=== PATIENT | female | born 1980 | race Caucasian/White ===

== ENCOUNTER 2018-03-18 11:41 | Emergency (ER) | payer BC ==
[2018-03-18 12:01] VITALS: RESP 20; TEMP 97.9; O2SAT 100
[2018-03-18] MEDS ORDERED: KETOROLAC TROMETHAMINE 30 MG/ML SOL IV ONE (12:16)
[2018-03-18] MEDS ORDERED: ONDANSETRON HCL 4 MG/2 ML SOL IV ONE (12:16)
[2018-03-18] MEDS ORDERED: ONDANSETRON HCL 4 MG/2 ML SOL ONE (12:25)
[2018-03-18] MEDS ORDERED: KETOROLAC TROMETHAMINE 30 MG/ML SOL ONE (12:25)
[2018-03-18] MEDS ORDERED: SODIUM CHLORIDE 0.9% 1000 ML SOL IV SCH (12:30)
[2018-03-18 12:38] LABS: CALCIUM 8.4 mg/dl (8.5-10.1); CARBON DIOXIDE 26.7 mEq/L (21-32); CREATININE 1.11 mg/dl (0.60-1.00); POTASSIUM 3.8 mMol/L (3.5-5.1)
[2018-03-18] MEDS ORDERED: TAMSULOSIN HYDROCHLORIDE 0.4 MG CAP ONE (13:09)
[2018-03-18] MEDS ORDERED: TAMSULOSIN HYDROCHLORIDE 0.4 MG CAP PO ONE (13:30)
[2018-03-18 13:49] LABS: APPEARANCE,URINE Clear; BILIRUBIN,URINE NEGATIVE (NEGATIVE); COLOR,URINE Yellow; GLUCOSE, URINE (UA) NEGATIVE (NEGATIVE); KETONES,URINE 1+ (NEGATIVE); LEUKOCYTE ESTERASE ,URINE NEGATIVE (NEGATIVE); NITRATE,URINE NEGATIVE (NEGATIVE); OCCULT BLOOD,URINE 2+ (NEG-TRACE); PH,URINE 5.5; UROBILINOGEN,URINE 0.2 (0.2-1.0 EU)
[2018-03-18 13:55] LABS: BACTERIA 1+ (< 1+); CRYSTALS NEGATIVE (0-3 AVE/HPF)
[2018-03-18 15:00] VITALS: BP 100/64; PULSE 85
== END 2018-03-18 14:10 | disposition home or self-care (01) ==
LOC: ED 11:41
DX: N20.0 Calculus of kidney (principal); R11.10 Vomiting, unspecified
CPT/HCPCS: 36415; 80048; 81001; 96365; 96374; 96375; 99282; 99284; J1885; J2405; A9270-GY